=== PATIENT | male | born 1960 | race Caucasian/White ===

== ENCOUNTER 2025-02-27 19:46 | Inpatient (IN) | payer OTHER, SELFPAY ==
[2025-02-27 15:52] VITALS: BP 175/94
[2025-02-27 15:53] VITALS: BMI 21.1
[2025-02-27 15:57] LABS: Glucose - Point of Care 97 mg/dl (70-99)
--- NOTE | 2025-02-27 16:05 | ED.GENMED ---
History of Present Illness
General
Chief Complaint: Fever
Time Seen by Provider: 02/27/25 16:05
History of Present Illness
History of Present Illness:
PAST MEDICAL HISTORY AND REVIEW OF OLD RECORDS
- Patient came brought in by ambulance from [facility] rehab. The patient did have a CTA that I reviewed of the head neck May 2021.
Note:
CHIEF COMPLAINT(S)
Fever and chills.
HISTORY OF PRESENT ILLNESS
The patient is a 64-year-old male who presents with fever and chills. He reports having a fever of 104 degrees Fahrenheit as measured rectally. He was previously at [facility] for similar symptoms but was unable to stay due to lack of
available placement. The patient is currently undergoing rehabilitation at [facility]. He has expressed feelings of extremely cold despite the high fever. Additionally, he has been experiencing difficulty with urination and requires a Gonzalez catheter
due to kidney issues; he states that one kidney is non-functional and the other has cancer. The patient has a history of a stroke affecting his left side, which occurred two years ago. He reports smoking in the past and acknowledges previous
physician advice against smoking and drinking.
EXTERNAL RECORDS REVIEWED
Prior hospitalizations mentioned at [facility] and [facility] for fever management.
CHRONIC MEDICAL CONDITIONS SIGNIFICANTLY AFFECTING CARE
The patient has a history of stroke affecting the left side, occurring two years ago. He also has severe renal impairment, with one kidney non-functional and the other affected by cancer.
SOCIAL HISTORY
The patient has a history of smoking cigarettes, which he confirmed bringing to a previous physician appointment.
PHYSICAL EXAM
General: Alert, displays some confusion regarding time. He is febrile.
Skin: Warm, dry.
Head: Normocephalic, atraumatic.
Neck: Supple, trachea midline.
Eye, Ears, Nose, Mouth and Throat: Oral mucosa moist.
Cardiovascular: Normal peripheral perfusion, No edema. Tachycardic.
Respiratory: Respirations are non-labored. Breath sounds are clear and he is in no respiratory distress.
Gastrointestinal: Abdomen nondistended. Gonzalez catheter noted draining cloudy yellow urine.
Back: Normal range of motion, Normal alignment.
Musculoskeletal: Markedly decreased active range of motion left upper left lower due to pain
Neurological: There is markedly decreased strength in the left upper and left lower extremities as well as facial asymmetry that he states is related to stroke from several years ago.
Psychiatric: The patient appears confused at times and seems to lack medical knowledge including his own history
PROBLEM LIST
Acute: Fever and chills.
Chronic: Stroke, Kidney cancer, Non-functional kidney.
PLAN
Evaluate the patient with diagnostic tests, considering his reported kidney issues and history of stroke. Address fever management possibly with antipyretics like acetaminophen and ensure renal function is monitored. Investigate further the cause of
the fever, given the patients complex medical history.
DIFFERENTIAL DIAGNOSIS
The Differential Diagnosis includes, in no particular order and is not limited to:
1. Urinary tract infection
2. Pyelonephritis
3. Sepsis
4. Pneumonia
5. Malignancy-related fever
6. Viral infection
7. Bacterial infection
8. Medication-induced fever
9. Thromboembolism
10. Inflammatory process
SUMMARY OF ENCOUNTER
The patient was seen in the emergency department with suspected urinary tract infection. Given the patients complex medical history, including previous kidney issues and fever, we decided to administer strong intravenous antibiotics to address the
probable infection.
DISPOSITION
Admit
ASSESSMENT
The patient likely has a urinary tract infection, given the symptoms and preliminary assessments.
EMERGENCY TREATMENTS ADMINISTERED
The patient was administered intravenous antibiotics to combat the suspected urinary tract infection.
FOLLOW-UP INSTRUCTIONS
The patient will need to follow up after discharge from the hospital with a primary care provider or specialist to ensure the resolution of the infection and to manage ongoing kidney issues.
MEDICAL DECISION MAKING
-Complexity of Data Reviewed: Chronic conditions affecting care [history of stroke, renal cancer, non-functional kidney]
-Data:
Category 2
Non-emergency department records reviewed, including the patients recent admission history at [facility].
-Risk:
The decision for hospitalization was made due to the high risk associated with untreated urinary tract infections in a patient with significant renal comorbidities.
DIAGNOSIS
Urinary Tract Infection (UTI) - ICD-10: N39.0
RADIOLOGY
- Chest x-ray shows no acute abnormality.
EKG
- Sinus 103, leftward axis deviation, incomplete right bundle branch block
LABS
- White count 17.5, hemoglobin 11.4, initial blood sugar 97
UPDATE
- The patient was given Tylenol and fluids upon arrival. He has a significant elevated white blood cell count and arrived tachycardic and febrile.
- Evidence of UTI, ordered Rocephin
Phy Exam
Physical Exam
Physical Exam:
See HPI
Sepsis
Sepsis Screening
Sepsis Assessment: Sepsis
Sepsis Screen
Sepsis Screen: Sepsis
Date: 02/27/25
Time: 20:25
Course
Orders/Labs/Results
Orders:
Orders
02/27/25 15:55
Electrocardiogram (*1) Urgent
Reason for Study: Other
Other Reason for Exam: Possible Sepsis
EKG- Treatment ONCE
02/27/25 16:13
0.9% Sodium Chloride 1000 ml [Nss] 2,100 ml IV NOW STA
CR Chest Portable - 1 View Urgent
Comment:
Reason For Exam: fevers
Reason Study Needs to be Portable: Patient Unstable
02/27/25 16:15
Lactic Acid Q4H
Comment: CANCEL 2nd LACTIC ACID IF 1st LACTIC ACID IS LESS THAN 2
02/27/25 16:25
Complete Blood Count/With Diff Urgent
Lactic Acid Q4H
Comment: ON ICE, CANCEL 2ND ORDER IF FIRST LACTIC ACID LEVEL <2
02/27/25 16:26
Prothrombin Time Urgent
Blood Culture Q20M
NASIM Source: Blood/Venous
Specimen Description:
Comment: Urgent from separate sites. If patient screens positive for possible sepsis
Blood Culture Q20M
NASIM Source: Blood/Venous
Specimen Description:
Comment: Urgent from separate sites. If patient screens positive for possible sepsis
Blood Culture Q30M
NASIM Source: Blood/Venous
Specimen Description:
Blood Culture Q30M
NASIM Source: Blood/Venous
Specimen Description:
Influenza A+B Rapid Molecular Urgent
NASIM Source: Nasal Swab
Specimen Description:
02/27/25 16:27
Urinalysis Reflex To Culture Urgent
Date Specimen was Collected: 02/27/25
Time Specimen was Collected: 15:55
Urine Microscopic Reflex Cult Urgent
Urine Culture Urgent
NASIM Source: U
Specimen Description:
Date Specimen was Collected: 02/27/25
Time Specimen was Collected: 15:55
02/27/25 16:50
Acetaminophen [Tylenol] 1,000 mg PO NOW STA
02/27/25 17:37
CefTRIAXone [Rocephin] 1,000 mg IV NOW STA
02/27/25 18:06
Sterile Water [Sterile Water For Injection] 10 ml .ROUTE .[facility]
02/27/25 18:31
Comprehensive Metabolic Panel Urgent
02/27/25 18:47
Gonzalez Catheter [Catheter- Indwelling] As Directed
Reason for insertion: Chronic Gonzalez on Admit
Size: 18
Type: Indwelling
02/27/25 19:19
Admit/Transfer Patient As Directed
Co-Sign Provider:
Level of Care: Inpatient admission
Assign to:: Telemetry
Physician / Group: raheem pino
Diagnosis: sepsis/uti catheter associated
Reason for Telemetry: Arrhythmia
Date to Stop Telemetry: 03/02/25
Time to Stop Telemetry: 11:00
Reason for Hospitalization: sepsis/uti catheter associated
Expected length of stay greater than two midnights?: Yes
ELOS- Estimated Length of Stay in days: 4
I certify the patient meets the requirements for IP care: Yes
Code Status As Directed
Resuscitation Status: Full Code
02/27/25 19:23
PRN Pain Medication Management As Directed
May give lesser potent ordered pain med per pt: Yes
preference::
Protocol:: Medication orders for pain may be administered in a
manner that supports deferring to patient preference
when the pt is:
- Requesting an ordered lesser potent pain medication.
Least to most potent pain medications are defined
as: acetaminophen < NSAID < tramadol < opioids
(morphine, oxycodone, hydromorphone).
- Requesting a lesser dose of the same medication IF
ORDERED.
- Requesting a less intrusive route of administration
if both routes are prescribed by the provider (PO <
IV).
02/27/25 19:31
PRN Pain Medication Management As Directed
May give lesser potent ordered pain med per pt: Yes
preference::
Protocol:: Medication orders for pain may be administered in a
manner that supports deferring to patient preference
when the pt is:
- Requesting an ordered lesser potent pain medication.
Least to most potent pain medications are defined
as: acetaminophen < NSAID < tramadol < opioids
(morphine, oxycodone, hydromorphone).
- Requesting a lesser dose of the same medication IF
ORDERED.
- Requesting a less intrusive route of administration
if both routes are prescribed by the provider (PO <
IV).
02/27/25 19:35
PRN Pain Medication Management As Directed
May give lesser potent ordered pain med per pt: Yes
preference::
Protocol:: Medication orders for pain may be administered in a
manner that supports deferring to patient preference
when the pt is:
- Requesting an ordered lesser potent pain medication.
Least to most potent pain medications are defined
as: acetaminophen < NSAID < tramadol < opioids
(morphine, oxycodone, hydromorphone).
- Requesting a lesser dose of the same medication IF
ORDERED.
- Requesting a less intrusive route of administration
if both routes are prescribed by the provider (PO <
IV).
02/27/25 20:00
Lactic Acid Q4H
Comment: ON ICE, CANCEL 2ND ORDER IF FIRST LACTIC ACID LEVEL <2
02/27/25 20:15
Lactic Acid Q4H
Comment: CANCEL 2nd LACTIC ACID IF 1st LACTIC ACID IS LESS THAN 2
03/02/25 11:00
DC Protocol for Telemetry ONCE
DC Protocol for Telemetry ONCE
Abnormal Lab Results
02/27/25 02/27/25 02/27/25
16:25 16:26 16:27
WBC 17.5 H 10^3/uL
(4.8-10.8)
RBC 3.86 L 10^6/uL
(4.70-6.10)
Hgb 11.4 L g/dL
(13.0-18.0)
Hct 34.2 L %
(39.0-52.0)
Plt Count 526 H 10^3/uL
(130-400)
Abs Immat Gran (auto) 0.1 H 10^3/uL
(0-0.05)
Absolute Neuts (auto) 13.2 H 10^3/uL
(1.4-6.5)
Absolute Monos (auto) 1.3 H 10^3/uL
(0.1-0.6)
Lymphocytes % 16.5 L %
(20.5-51.1)
PT 16.9 H Sec
(11.4-14.6)
Sodium
Carbon Dioxide
Glucose
Calcium
AST
Total Protein
Albumin
Ur Occult Blood Reflex 4+ A
(Negative)
Leukocyte Esterase Rfl 3+ A
(Negative)
Urine RBC 3-6 A /HPF
(0-2)
Urine WBC (Reflex) 40-50 A /HPF
(0-5)
Urine Bacteria (Reflex) Few A
(Negative)
Urine Albumin (Reflex) 2+ A
(Neg - Trace)
02/27/25
18:31
WBC
RBC
Hgb
Hct
Plt Count
Abs Immat Gran (auto)
Absolute Neuts (auto)
Absolute Monos (auto)
Lymphocytes %
PT
Sodium 132 L mmol/L
(135-145)
Carbon Dioxide 21 L mmol/L
(22-30)
Glucose 132 H mg/dl
(70-99)
Calcium 7.8 L mg/dl
(8.4-10.2)
AST 14 L U/L
(17-59)
Total Protein 5.9 L g/dl
(6.3-8.2)
Albumin 3.2 L g/dl
(3.5-5.0)
Ur Occult Blood Reflex
Leukocyte Esterase Rfl
Urine RBC
Urine WBC (Reflex)
Urine Bacteria (Reflex)
Urine Albumin (Reflex)
02/27/25 16:25
02/27/25 18:31
Vital Signs
Temp: 40.0 C
Initial and Last Documented VS:
Initial Vital Signs
Temp Pulse Resp BP Pulse Ox
40.1 C H 104 18 175/94 97
02/27/25 15:52 02/27/25 15:52 02/27/25 15:52 02/27/25 15:52 02/27/25 15:52
Last Documented Vital Signs
Temp Pulse Resp BP Pulse Ox
40.0 C H 118 23 131/74 97
02/27/25 16:45 02/27/25 18:45 02/27/25 18:45 02/27/25 18:00 02/27/25 16:15
*Pulse Oximetry
SaO2: 97
Oxygen Mode of Delivery: Room air
Patient hypoxic: no
*Critical Care Note
Total Time (30-74mins, 75-104mins- exclusive of procedures): Not Applicable
ED Attending Note
-
Portions of this chart may have been created with voice recognition software.� Occasional wrong word or��sound alike� substitutions may have occurred due to the inherent limitations of voice recognition software.
Discharge Plan
Departure
Patient Disposition: Admit
Date of Disposition: 02/27/25
Time of Disposition: 17:44
Presentation/result/management discussed w/ accepting MD/DO: Hospitalist
Patient with high blood pressure during this ER visit?: Yes
Discharge Problem:
Sepsis secondary to UTI
Interventions
Interventions:
*Risk Screen - Suicide Last Done: 02/27/25 16:07
*General Assessment Last Done: 02/27/25 15:59
*Neglect/Abuse Screening Last Done: 02/27/25 16:07
*ED- Fall Risk Assessment Last Done: 02/27/25 15:59
*ED COVID-19 Vaccine History Last Done: 02/27/25 15:59
ED- Neurological Assessment Last Done: 02/27/25 17:21
ED-Skin Assessment Last Done: 02/27/25 17:21
[2025-02-27 16:40] LABS: Hematocrit 34.2 % (39.0-52.0); Hemoglobin 11.4 g/dL (13.0-18.0); Mean Corp Hgb Conc. 33.3 g/dL (33.0-37.0); Mean Corpuscular Volume 88.6 fL (80.0-94.0); Nucleated Red Blood Cells % 0 % (-); Platelet Count 526 10^3/uL (130-400); Red Cell Dist. Width 13.8 % (11.5-14.5)
[2025-02-27 16:49] LABS: INR 1.34; PT 16.9 Sec (11.4-14.6)
[2025-02-27 17:00] VITALS: BP 155/109
[2025-02-27] MEDS: NSS 2100 ML IV (17:04)
[2025-02-27] MEDS: TYLENOL 1000 MG PO (17:04)
[2025-02-27 17:18] LABS: Urine Character Clear (Clear)
[2025-02-27 17:25] LABS: Urine Squamous Cell 0-2 /LPF (Few); Urine White Cell 40-50 /HPF (0-5)
[2025-02-27 18:00] VITALS: BP 131/74
[2025-02-27] MEDS: ROCEPHIN 1000 MG IV (18:09)
--- NOTE | 2025-02-27 18:44 | HPS.HSE ---
Family Physician
-
Family Physician: Marcello Macias, DO
Chief Complaint
-
Fever, chills
History of Present Illness
64-year-old male from [facility] rehab sent in for 104F rectal temperature, fever, chills requires Gonzalez catheter due to neurogenic bladder post stroke 2 years ago. He has had approximately 3-4 catheter associated infections he stated. He reports
he was diagnosed with left renal cancer approximate 9 months ago at [facility] however has not sought any treatment yet. He was homeless and in between places was at a rehab in [place] then got moved to [facility] and is on a waiting
list for low income assisted housing he reports. He had history of multiple strokes he states with large stroke 2 years ago resulting in left hemiparesis, slurred speech, memory impairment(talks in a tangent) prior. He denies headache, sore
throat, chest pain, palpitations, cough, shortness breath, abdominal pain, nausea, vomiting, diarrhea.
He has past medical history active smoker CVA with left-sided hemiparesis 2022/memory impairment/left foot neuropathy, chronic Gonzalez catheter/neurogenic bladder x 2 years, frequent UTIs, right single nonfunctioning kidney, left renal cancer,, HTN,
HLD, DM2, GERD, upper GI bleed, former alcoholic stop 2022, renal calculi.
Medical History
Past Medical History
Past Medical History: Reports Other
Additional Past Medical History:
CVA with left-sided hemiparesis 2022/memory impairment/left foot neuropathy
chronic Gonzalez catheter/neurogenic bladder x 2 years
frequent UTIs
right single nonfunctioning kidney
left renal cancer
HTN
HLD
DM2
GERD
upper GI bleed
former alcoholic stop 2022
renal calculi.
Past Surgical History: Reports Other
Additional Past Surgical History:
Cholecystectomy
Tonsillectomy
Social History
Tobacco: Smoker (Half a pack per day)
Alcohol: Former (40 years 1 case beer a day stopped 2022)
Personal: Single
Living: Penitentiary ([facility])
Employment: Disabled
Family History
Family History: Other (Father CVA age 93 mother currently living history of breast cancer, skin cancer)
Allergies / Home Medications
Allergies reflects when Allergies were last updated in [employer].
Home Medications with original date entered in [employer]
Allergy/Medication List:
Allergies
Allergy/AdvReac Type Severity Reaction Status Date / Time
No Known Allergies Allergy Unverified 02/27/25 16:47
Home Medications
acetaminophen 325 mg tablet (Tylenol) 650 mg PO Q6HPRN PRN mild pain 02/27/25
acetaminophen 325 mg tablet (Tylenol) 650 mg PO Q6HPRN PRN mild pain 02/27/25
aspirin 81 mg chewable tablet 81 mg PO DAILY 02/27/25
atorvastatin 40 mg tablet (Lipitor) 40 mg PO QPM 02/27/25
baclofen 10 mg tablet 10 mg PO BID 02/27/25
bisacodyl 10 mg rectal suppository (Dulcolax (bisacodyl)) 10 mg VA DAILYPRN PRN if no bm aftr mom 02/27/25
calcium carbonate 500 mg PO DAILY 02/27/25
cetylpyridinium chloride 1 melody mucous membrane Q2HPRN PRN cough 02/27/25
gabapentin 300 mg capsule 300 mg PO BID 02/27/25
insulin glargine 100 unit/mL subcutaneous solution 8 unit SC HS 02/27/25
insulin lispro 200 unit/mL (3 mL) subcutaneous pen (Humalog KwikPen U-200 Insulin) 5 sliding scale dose SC AC 02/27/25
levetiracetam 500 mg tablet (Keppra) 500 mg PO BID 02/27/25
loperamide 2 mg capsule 2 mg PO [id number] PRN diarrhea 02/27/25
loratadine 10 mg tablet (Claritin) 10 mg PO DAILYPRN PRN allergies 02/27/25
magnesium hydroxide 400 mg/5 mL oral suspension (Milk of Magnesia) 2,400 mg PO DAILYPRN PRN if no bm by 3rd day 02/27/25
meloxicam 15 mg tablet 15 mg PO HS 02/27/25
metformin 500 mg tablet 500 mg PO BID 02/27/25
pantoprazole 40 mg tablet,delayed release (Protonix) 40 mg PO DAILY 02/27/25
sodium phosphates 19 gram-7 gram/118 mL enema (Fleet Enema) 118 ml VA DAILYPRN PRN if no bm aftr dulolcax 02/27/25
tamsulosin 0.4 mg capsule (Flomax) 0.4 mg PO HS 02/27/25
Review of Systems
-
History Source: Patient
A 12 point ROS was completed and negative except as noted: Yes
Constitutional: Reports Fever and Chills
EENT: Denies Sore Throat or Runny Nose
Respiratory: Denies Cough or Trouble Breathing
Cardiac: Denies Chest Pain, Diaphoresis, Palpitations or Syncope
Abdomen/GI: Denies Abdominal Pain, Nausea, Vomiting, Diarrhea, Constipated or Bloody Stools
: Reports Gonzalez (Draining yellow in color)
Musculoskeletal: Denies Joint Pain or Edema
Skin: Denies Itching or Rash
Neurological: Reports Weakness (Chronic left hemiparesis with left drop wrist can slightly dorsiflex left foot); Denies Dizzy or Headache
Endocrine: Reports No Symptoms
Hematologic/Lymphatic: Reports No Symptoms
Psych: Reports Calm
Physical Exam
Vital Signs
Vital Signs
Temp Pulse Resp BP Pulse Ox
104.0 F H 117 26 131/74 97
02/27/25 16:45 02/27/25 18:15 02/27/25 18:15 02/27/25 18:00 02/27/25 16:15
Physical Exam
General: Fever and Chills
HEENT: NormoCephalic, Anicteric, Moist mucous membranes, PERRLA, [place] Conjunctivae and No Ptosis
Respiratory: Clear; No Wheezes, Rales or Rhonchi
Cardiac: S1/S2 and Regular Rhythm; No Murmur, Rub, Gallop or Peripheral Edema
Breast: Deferred by me
GI: Soft, Non Tender, Non Distended, Normal Bowel Sounds and No Hepatosplenomegaly
Genito-urinary: Gonzalez (Draining yellow in color)
Musculoskeletal: No Clubbing, No Cyanosis, No Edema and Other (Chronic left hemiparesis with left drop wrist can slightly dorsiflex left foot)
Neuro: Awake, Alert, Oriented (To name, place, year but poor historian as has memory loss due to history of stroke in 2022 he believes), No Sensory Deficits and Other (Chronic left-sided hemiparesis with left wrist drop, slight plantarflexion of
left foot, chronic slight slurring of speech since stroke); No Facial Droop, Tremors or Sedated
Psych: Calm
Laboratory Results
-
02/27/25 16:25
Laboratory Results
PT 16.9 Sec (11.4-14.6) H 02/27/25 16:26
INR 1.34 02/27/25 16:26
Lactic Acid 1.9 mmol/L (0.7-2.0) 02/27/25 16:25
Total Bilirubin Cancelled 02/27/25 16:26
AST Cancelled 02/27/25 16:26
ALT Cancelled 02/27/25 16:26
Alkaline Phosphatase Cancelled 02/27/25 16:26
Data Reviewed
-
Lab Data: Labs Reviewed by me
Impression/Plan
-
Impression/plan:
Admit to tele
#Sepsis 2/2 catheter associated UTI
History of recurrent UTIs-states typically goes to [facility] or [facility]
#Single nonfunctioning kidney right
104F temp, WBC 17.5 with left shift, HR 117, 131/74
Corrected calcium 8.4
- Gonzalez catheter replaced in ER
- Follow urine culture, blood cultures x 2
- IV Rocephin
-Continue Flomax 0.4 mg at bedtime
- Tylenol 1000 mg now
- IV NSS 2000 cc bolus given in ER
-IV NSS 100 cc an hour
- Follow CBC, CMP, lactic acid
# Left renal carcinoma other kidney-patient reports 9 months ago was diagnosed at [facility] but has not sought treatment
- Advised patient to seek evaluation
#CVA with chronic left-sided hemiparesis, chronic memory impairment 2022
#History of seizure with stroke in 2022
- Continue Keppra 500 mg twice daily, aspirin 81 mg daily, Lipitor 40 mg every afternoon
- Uses wheelchair
#Nicotine abuse
Smokes half a pack a day cessation advised
-Refused nicotine patch or gum
#HTN
- BP 131/74
- Current medication
#HLD
- Continue Lipitor 40 mg every afternoon
#DM2
- Accu-Cheks with SSI, check HgbA1c
- Continue insulin glargine 8 units SQ at bedtime, Humalog 5 units with meals
Hold metformin 500 mg twice daily
# GERD
upper GI bleed
History of esophageal perforation 2 years ago patient reports
- Continue Protonix 40 mg daily, calcium carbonate 500 mg daily
#Chronic left foot neuropathy
-Continue meloxicam 15 mg at bedtime
-Continue gabapentin 300 mg p.o. twice daily
Other PMH:
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
Renal calculi
DVT prophylaxis
Subcu Lovenox
Full code
[2025-02-27 19:10] LABS: ALT (SGPT) 11 U/L (0-50); AST (SGOT) 14 U/L (17-59); Albumin 3.2 g/dl (3.5-5.0); Alkaline Phosphatase 76 U/L (38-126); Blood Urea Nitrogen 12 mg/dl (9-20); Calcium 7.8 mg/dl (8.4-10.2); Carbon Dioxide 21 mmol/L (22-30); Chloride 105 mmol/L (98-107); Estimated Creatinine Clearance 75 ml/min; Glucose 132 mg/dl (70-99); Potassium 4.2 mmol/L (3.5-5.1); Sodium 132 mmol/L (135-145); Total Protein 5.9 g/dl (6.3-8.2); eGFR > 60.00
--- NOTE | 2025-02-27 19:29 | W.PN.UPDATE ---
Update Note
Progress Note Update
Patient seen in conjunction with REAL ESTATE PHOTOGRAPHER. I agree with her findings on history and physical. I concur with assessment and plan listed otherwise.
Briefly, this is a 64-year-old male who presents from [facility] facility with fevers and chills. History is not entirely complete but appears to have a history of prior CVA with hemorrhagic conversion and residual neurogenic bladder with
urinary retention issues status post chronic indwelling urinary catheter, on seizure prophylaxis, GERD, [id number]-[id number] diabetes, BPH, minimal dementia who states he has been having chills. Denies any abnormalities with his urinary catheter.
Denies flank pain. Denies any nausea or vomiting. Denies abdominal discomfort. History of prior UTIs. He also reports history of nonfunctional right kidney of unknown etiology and possibly left sided kidney mass/cancer that he states required
scraping.
In the ED he had a temp of 104, blood pressure was 130/74 with a pulse rate of 117. He had a white count of 7.5, hemoglobin 11.4 platelet 526. His electrolytes show a sodium of 132 otherwise normal. BUN and creatinine were 13 and 0.9
respectively. UA markedly positive with WBCs leukocyte esterase but only few bacteria. Influenza A is negative. Chest x-ray shows no acute infiltrates.
Assessment plan
Urosepsis/complicated UTI in patient with chronic indwelling catheter and history of's
Recent hospitalization
- Admit to telemetry for sepsis
- Blood and urine cultures sent
- Normal lactic acid
- Start IV ceftriaxone
- Status post 2 L normal saline, hemodynamically stable
- Monitor ins and outs
- No flank pain, normal kidney function, hold off imaging at this time
- Continues tamsulosin
Rest of plan as in the REAL ESTATE PHOTOGRAPHER note
DVT prophylaxis�Lovenox
CODE STATUS�full code
[2025-02-27 20:00] VITALS: BP 101/62
[2025-02-27 21:35] VITALS: BP 100/58; BMI 20.6
[2025-02-27 21:56] LABS: Glucose - Point of Care 167 mg/dl (70-99)
[2025-02-27] MEDS: NSS 1000 IV (22:33)
[2025-02-27] MEDS: FLOMAX 0.4 MG PO (22:33)
[2025-02-27] MEDS: KEPPRA 500 MG PO (22:33)
[2025-02-27] MEDS: NEURONTIN 300 MG PO (22:33)
[2025-02-27] MEDS: LIORESAL 10 MG PO (22:34)
[2025-02-27] MEDS: MOBIC 15 MG PO (22:34)
[2025-02-27] MEDS: TYLENOL 650 MG PO (23:33)
[2025-02-27 23:43] VITALS: BP 139/63
[2025-02-27] MEDS: LANTUS 0.04 UNITS SC (23:51)
[2025-02-28] VITALS (7 sets, daily range): BP systolic 95–150; BP diastolic 55–79; PULSE 78; O2SAT 94
[2025-02-28 07:23] LABS: Glucose - Point of Care 120 mg/dl (70-99)
[2025-02-28] MEDS: TYLENOL 650 MG PO ×2 (07:46→16:03)
[2025-02-28] MEDS: KEPPRA 500 MG PO ×2 (07:47→19:10)
[2025-02-28] MEDS: OSCAL CAL 500 500 MG PO (07:47)
[2025-02-28] MEDS: LOW STRENGTH ASPIRIN 81 MG PO (07:47)
[2025-02-28] MEDS: LIORESAL 10 MG PO ×2 (07:48→19:10)
[2025-02-28] MEDS: PROTONIX 40 MG PO (07:48)
[2025-02-28] MEDS: NEURONTIN 300 MG PO ×2 (07:48→19:10)
[2025-02-28 07:52] LABS: Hematocrit 32.4 % (39.0-52.0); Hemoglobin 10.6 g/dL (13.0-18.0); Mean Corp Hgb Conc. 32.7 g/dL (33.0-37.0); Mean Corpuscular Volume 89.8 fL (80.0-94.0); Nucleated Red Blood Cells % 0 % (-); Platelet Count 462 10^3/uL (130-400); Red Cell Dist. Width 13.7 % (11.5-14.5)
[2025-02-28] MEDS: NSS 1000 IV (07:57)
[2025-02-28] MEDS: NOVOLOG FLEXPEN-LOW RESISTANCE SC ×2 (08:02→17:22)
[2025-02-28] MEDS: NOVOLOG FLEXPEN 5 UNITS SC ×2 (08:57→11:48)
[2025-02-28 09:08] LABS: Glycohemoglobin (HgbA1c) 7.1 % (4.0-5.6)
[2025-02-28 10:05] LABS: ALT (SGPT) < 10 U/L (0-50); AST (SGOT) 15 U/L (17-59); Albumin 3.2 g/dl (3.5-5.0); Alkaline Phosphatase 72 U/L (38-126); Blood Urea Nitrogen 9 mg/dl (9-20); Calcium 8.1 mg/dl (8.4-10.2); Carbon Dioxide 21 mmol/L (22-30); Chloride 109 mmol/L (98-107); Estimated Creatinine Clearance 82 ml/min; Glucose 100 mg/dl (70-99); Potassium 4.3 mmol/L (3.5-5.1); Sodium 136 mmol/L (135-145); Total Protein 6.1 g/dl (6.3-8.2); eGFR > 60.00
--- NOTE | 2025-02-28 10:15 | W.PN.HOSP.TC ---
Today's Communication/Plan
-
IV Ceftriaxone
awaiting cultures
Assessment / Plan
Assessment / Plan
Mr. López Manuel is a 64 yo man, [facility] resident with hx CVA with left-sided hemiparesis (2022), memory impairment, neurogenic bladder with chronic benedict, frequent UTI's, HTN, HLD, DM 2, GERD, former alcohol use, tobacco use presents to the ER
with 104 T.
He is admitted for sepsis 2/2 UTI.
Sepsis 2/2 catheter associated UTI
History of recurrent UTI's - states typically goes to [facility] or [place]
- Benedict catheter replaced in ER
- Follow urine culture, blood cultures x 2
- IV Rocephin
-Continue Flomax 0.4 mg at bedtime
- IV NSS 2000 cc bolus given in ER
-IV NSS 100 cc an hour
- follow up cultures
# Left renal carcinoma -patient reports 9 months ago was diagnosed at [facility] but has not sought treatment
- Advised patient to seek evaluation
#CVA with chronic left-sided hemiparesis, chronic memory impairment 2022
#History of seizure with stroke in 2022
- Continue Keppra 500 mg twice daily, aspirin 81 mg daily, Lipitor 40 mg every afternoon
- Uses wheelchair
#Nicotine abuse
Smokes half a pack a day cessation advised
-Refused nicotine patch or gum
#HTN
- BP 131/74
- Current medication
#HLD
- Continue Lipitor 40 mg every afternoon
#DM2
- Accu-Cheks with SSI, check HgbA1c
- Continue insulin glargine 8 units SQ at bedtime, Humalog 5 units with meals
Hold metformin 500 mg twice daily
-ok to increase to 2200 chasity
# GERD
upper GI bleed
History of esophageal perforation 2 years ago patient reports
- Continue Protonix 40 mg daily, calcium carbonate 500 mg daily
#Chronic left foot neuropathy
-Continue meloxicam 15 mg at bedtime
-Continue gabapentin 300 mg p.o. twice daily
Other PMH:
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
Renal calculi
DVT prophylaxis
Subcu Lovenox
Full code
Anticipated Discharge: 24 - 48 hours
Subjective/Interval History
-
Date of Service: February 28, 2025
feeling better than yesterday
states antibiotics are working
Objective Data
-
Labs:
Laboratory Results
02/28/25 02/28/25
06:18 08:49
WBC 16.0 H
Hgb 10.6 L
Hct 32.4 L
Plt Count 462 H
Sodium Cancelled 136
Potassium Cancelled 4.3
Chloride Cancelled 109 H
Carbon Dioxide Cancelled 21 L
BUN Cancelled 9
Creatinine Cancelled 0.8
Glucose Cancelled 100 H
Calcium Cancelled 8.1 L
Total Bilirubin Cancelled 0.4
AST Cancelled 15 L
ALT Cancelled < 10
Alkaline Phosphatase Cancelled 72
Vital Signs:
Vital Signs
Temp Pulse Resp BP Pulse Ox
98.8 F 78 18 150/79 94
02/28/25 07:20 02/28/25 07:20 02/28/25 07:20 02/28/25 07:20 02/28/25 07:20
I&O
02/27/25 02/28/25 03/01/25
06:59 06:59 06:59
Intake Total 400 / 400
Output Total 1875 / 1875
Balance -1475 / -1475
Review of Systems
-
History Source: Patient
All other systems: Reviewed and negative
Physical Exam
-
General: No Apparent Distress
HEENT: PERRLA
Respiratory: Clear to Auscultation; Negative Wheezes
Cardiac: Regular Rhythm and S1/S2
GI: Soft and Nontender
Musculoskeletal: No Edema
Skin: Warm and Dry; Negative Rash
Neuro: AO x 3
Psych: Calm
Data Reviewed
-
Diagnostic Radiology: Report Reviewed by me
Labs: Labs Reviewed by me
[2025-02-28 11:46] LABS: Glucose - Point of Care 213 mg/dl (70-99)
[2025-02-28] MEDS: NOVOLOG FLEXPEN-LOW RESISTANCE 2 UNITS SC (11:48)
--- NOTE | 2025-02-28 15:23 | CM ---
Alert awake oriented patient who lives at [facility] half-way . He is wheelchair bound. He is non ambulatory.Referral placed for [facility]. Pt's requested to transfer to [facility] after rehab completed was forwarded CM at [facility]
via referral.Advanced directive give to patient .Pt has electric wheelchair at [facility].Pt has chronic Gonzalez with left side paralysis post CVA.
Pharmacy Concept
PCP DR Macias
PLAN return to [facility]
[2025-02-28 17:00] LABS: Glucose - Point of Care 76 mg/dl (70-99)
[2025-02-28] MEDS: LIPITOR 40 MG PO (17:20)
[2025-02-28] MEDS: LOVENOX 40 MG SC (17:20)
[2025-02-28] MEDS: STERILE WATER FOR INJECTION 10 ML IV (17:21)
[2025-02-28] MEDS: ROCEPHIN 1000 MG IV (17:22)
[2025-02-28 18:51] LABS: Glucose - Point of Care 171 mg/dl (70-99)
[2025-02-28] MEDS: NOVOLOG FLEXPEN SC (19:06)
[2025-02-28] MEDS: MOBIC 15 MG PO (19:11)
[2025-02-28] MEDS: FLOMAX 0.4 MG PO (19:11)
[2025-02-28 21:09] LABS: Glucose - Point of Care 154 mg/dl (70-99)
[2025-02-28] MEDS: LANTUS 0.08 UNITS SC (21:35)
[2025-03-01 03:47] VITALS: BP 138/67
[2025-03-01] MEDS: TYLENOL 650 MG PO ×3 (04:23→17:01)
--- NOTE | 2025-03-01 06:11 | PTCARENOTE ---
patient refusing daily weight at this time, states he doesn't want to get up and to ask again him at a later time.
[2025-03-01 07:10] LABS: Hematocrit 31.2 % (39.0-52.0); Hemoglobin 10.6 g/dL (13.0-18.0); Mean Corp Hgb Conc. 34.0 g/dL (33.0-37.0); Mean Corpuscular Volume 89.4 fL (80.0-94.0); Nucleated Red Blood Cells % 0 % (-); Platelet Count 454 10^3/uL (130-400); Red Cell Dist. Width 13.5 % (11.5-14.5)
[2025-03-01 07:20] VITALS: BP 139/72
[2025-03-01 07:24] LABS: Glucose - Point of Care 111 mg/dl (70-99)
[2025-03-01] MEDS: NOVOLOG FLEXPEN-LOW RESISTANCE SC ×2 (07:37→16:35)
[2025-03-01 08:15] LABS: Blood Urea Nitrogen 10 mg/dl (9-20); Calcium 8.3 mg/dl (8.4-10.2); Carbon Dioxide 25 mmol/L (22-30); Chloride 105 mmol/L (98-107); Estimated Creatinine Clearance 66 ml/min; Glucose 108 mg/dl (70-99); Potassium 4.1 mmol/L (3.5-5.1); Sodium 138 mmol/L (135-145); eGFR > 60.00
[2025-03-01] MEDS: KEPPRA 500 MG PO ×2 (09:25→19:38)
[2025-03-01] MEDS: PROTONIX 40 MG PO (09:25)
[2025-03-01] MEDS: LOW STRENGTH ASPIRIN 81 MG PO (09:25)
[2025-03-01] MEDS: LIORESAL 10 MG PO ×2 (09:25→19:38)
[2025-03-01] MEDS: NEURONTIN 300 MG PO ×2 (09:25→19:38)
[2025-03-01] MEDS: OSCAL CAL 500 500 MG PO (09:26)
[2025-03-01] MEDS: NOVOLOG FLEXPEN 5 UNITS SC ×3 (09:26→16:45)
--- NOTE | 2025-03-01 10:16 | CM ---
Referral placed for [facility] return . Pt accepted back at co.
SW at [facility] aware of pt's requested to transfer to [facility] after rehab.
Pt has electric wheelchair at [facility].Pt has chronic Gonzalez with left side paralysis post CVA.
Pt on IV antibiotics Pending cultures.
Will need medical nec form for ambulance.
[facility]
[phone]
fax [phone]
PLAN return to [facility]
--- NOTE | 2025-03-01 10:54 | W.PN.HOSP.TC ---
Today's Communication/Plan
-
IV Ceftriaxone
possible DC tomorrow
Assessment / Plan
Assessment / Plan
Mr. López Manuel is a 64 yo man, [facility] resident with hx CVA with left-sided hemiparesis (2022), memory impairment, neurogenic bladder with chronic benedict, frequent UTI's, HTN, HLD, DM 2, GERD, former alcohol use, tobacco use presents to the ER
with 104 T.
He is admitted for sepsis 2/2 UTI.
Sepsis 2/2 catheter associated UTI
History of recurrent UTI's - states typically goes to [facility] or [place]
- Benedict catheter replaced in ER
- urine culture with mixed growth. Given clinical improvement on IV Ceftriaxone, will continue
-Continue Flomax 0.4 mg at bedtime
- s/p fluids
- likely DC tomorrow, continue to monitor leukocytosis which is resolving
# Left renal carcinoma -patient reports 9 months ago was diagnosed at [facility] but has not sought treatment
- Advised patient to seek evaluation
#CVA with chronic left-sided hemiparesis, chronic memory impairment 2022
#History of seizure with stroke in 2022
- Continue Keppra 500 mg twice daily, aspirin 81 mg daily, Lipitor 40 mg every afternoon
- Uses wheelchair
#Nicotine abuse
Smokes half a pack a day cessation advised
-Refused nicotine patch or gum
#HTN
- BP 131/74
- Current medication
#HLD
- Continue Lipitor 40 mg every afternoon
#DM2
- Accu-Cheks with SSI, check HgbA1c
- Continue insulin glargine 8 units SQ at bedtime, Humalog 5 units with meals
Hold metformin 500 mg twice daily
-ok to increase to 2200 chasity
# GERD
upper GI bleed
History of esophageal perforation 2 years ago patient reports
- Continue Protonix 40 mg daily, calcium carbonate 500 mg daily
#Chronic left foot neuropathy
-Continue meloxicam 15 mg at bedtime
-Continue gabapentin 300 mg p.o. twice daily
Other PMH:
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
Renal calculi
DVT prophylaxis
Subcu Lovenox
Full code
Anticipated Discharge: 24 - 48 hours
Subjective/Interval History
-
Date of Service: March 01, 2025
overall feeling better
no fevers overnight
Objective Data
-
Labs:
Laboratory Results
03/01/25
06:11
WBC 12.7 H
Hgb 10.6 L
Hct 31.2 L
Plt Count 454 H
Sodium 138
Potassium 4.1
Chloride 105
Carbon Dioxide 25
BUN 10
Creatinine 1.0
Glucose 108 H
Calcium 8.3 L
Vital Signs:
Vital Signs
Temp Pulse Resp BP Pulse Ox
99.3 F 70 18 139/72 97
03/01/25 07:20 03/01/25 07:20 03/01/25 07:20 03/01/25 07:20 03/01/25 08:00
I&O
02/28/25 03/01/25 03/02/25
06:59 06:59 06:59
Intake Total 400 / 400 1840 / 1840
Output Total 1875 / 1875 2750 / 2750
Balance -1475 / -1475 -910 / -910
Review of Systems
-
History Source: Patient
All other systems: Reviewed and negative
Physical Exam
-
General: No Apparent Distress
HEENT: PERRLA
Respiratory: Clear to Auscultation; Negative Wheezes
Cardiac: Regular Rhythm and S1/S2
GI: Soft and Nontender
Genito-urinary: Benedict
Musculoskeletal: No Edema
Skin: Warm and Dry; Negative Rash
Neuro: AO x 3 and Other (left facial droop; left hemiparesis )
Psych: Calm
Data Reviewed
-
Diagnostic Radiology: Report Reviewed by me
Labs: Labs Reviewed by me
[2025-03-01 11:06] VITALS: BP 113/65
[2025-03-01 12:11] LABS: Glucose - Point of Care 153 mg/dl (70-99)
[2025-03-01] MEDS: NOVOLOG FLEXPEN-LOW RESISTANCE 1 UNITS SC (12:16)
[2025-03-01 12:45] LABS: Glucose - Point of Care 156 mg/dl (70-99)
[2025-03-01 15:33] VITALS: BP 120/67
[2025-03-01 16:30] LABS: Glucose - Point of Care 130 mg/dl (70-99)
[2025-03-01] MEDS: ROCEPHIN 1000 MG IV (17:02)
[2025-03-01] MEDS: LIPITOR 40 MG PO (17:02)
[2025-03-01] MEDS: LOVENOX 40 MG SC (17:02)
[2025-03-01] MEDS: STERILE WATER FOR INJECTION 10 ML IV (17:02)
--- NOTE | 2025-03-01 17:41 | PTCARENOTE ---
Addendum entered by Venessa Peterson 03/01/25 17:42:
correction: 230 cc total output from benedict.
Original Note:
pt with 330 cc output from benedict today. dr. brown notified, verbal order for 500cc NSS bolus. will continue to monitor.
[2025-03-01] MEDS: NSS 500 IV (18:06)
[2025-03-01 19:04] VITALS: BP 122/63
[2025-03-01] MEDS: MOBIC 15 MG PO (19:38)
[2025-03-01] MEDS: FLOMAX 0.4 MG PO (19:38)
[2025-03-01 21:29] LABS: Glucose - Point of Care 111 mg/dl (70-99)
[2025-03-01] MEDS: LANTUS 0.08 UNITS SC (21:45)
[2025-03-01 23:22] VITALS: BP 143/70
[2025-03-02 03:29] VITALS: BP 126/67
[2025-03-02 07:28] LABS: Hematocrit 33.8 % (39.0-52.0); Hemoglobin 11.0 g/dL (13.0-18.0); Mean Corp Hgb Conc. 32.5 g/dL (33.0-37.0); Mean Corpuscular Volume 89.4 fL (80.0-94.0); Nucleated Red Blood Cells % 0 % (-); Platelet Count 480 10^3/uL (130-400); Red Cell Dist. Width 13.7 % (11.5-14.5)
[2025-03-02 07:43] VITALS: BP 138/72
[2025-03-02 07:55] LABS: Glucose - Point of Care 104 mg/dl (70-99)
[2025-03-02] MEDS: NOVOLOG FLEXPEN-LOW RESISTANCE SC (08:14)
[2025-03-02] MEDS: PROTONIX 40 MG PO (08:14)
[2025-03-02] MEDS: KEPPRA 500 MG PO ×2 (08:14→20:42)
[2025-03-02] MEDS: LIORESAL 10 MG PO ×2 (08:15→20:42)
[2025-03-02] MEDS: LOW STRENGTH ASPIRIN 81 MG PO (08:15)
[2025-03-02] MEDS: TYLENOL 650 MG PO ×2 (08:15→17:28)
[2025-03-02] MEDS: OSCAL CAL 500 500 MG PO (08:15)
[2025-03-02] MEDS: NEURONTIN 300 MG PO ×2 (08:15→17:47)
[2025-03-02] MEDS: NOVOLOG FLEXPEN 5 UNITS SC ×3 (09:05→16:12)
--- NOTE | 2025-03-02 10:06 | W.PN.HOSP.TC ---
Today's Communication/Plan
-
monitor on IV antibiotics with persistent elevated WBC
Assessment / Plan
Assessment / Plan
Mr. López Manuel is a 64 yo man, [facility] resident with hx CVA with left-sided hemiparesis (2022), memory impairment, neurogenic bladder with chronic benedict, frequent UTI's, HTN, HLD, DM 2, GERD, former alcohol use, tobacco use presents to the ER
with 104 T.
He is admitted for sepsis 2/2 UTI.
Sepsis 2/2 catheter associated UTI
History of recurrent UTI's - states typically goes to [facility] or [place]
- Benedict catheter replaced in ER
- urine culture with mixed growth. Given clinical improvement on IV Ceftriaxone, will continue
-Continue Flomax 0.4 mg at bedtime
- s/p fluids
- WBC remains elevated, will monitor on IV antibiotics one more day
# Left renal carcinoma -patient reports 9 months ago was diagnosed at [facility] but has not sought treatment
- Advised patient to seek evaluation
#CVA with chronic left-sided hemiparesis, chronic memory impairment 2022
#History of seizure with stroke in 2022
- Continue Keppra 500 mg twice daily, aspirin 81 mg daily, Lipitor 40 mg every afternoon
- Uses wheelchair
#Nicotine abuse
Smokes half a pack a day cessation advised
-Refused nicotine patch or gum
#HTN
- BP 131/74
- Current medication
#HLD
- Continue Lipitor 40 mg every afternoon
#DM2
- Accu-Cheks with SSI, check HgbA1c
- Continue insulin glargine 8 units SQ at bedtime, Humalog 5 units with meals
Hold metformin 500 mg twice daily
-ok to increase to 2200 chasity
# GERD
upper GI bleed
History of esophageal perforation 2 years ago patient reports
- Continue Protonix 40 mg daily, calcium carbonate 500 mg daily
#Chronic left foot neuropathy
-Continue meloxicam 15 mg at bedtime
-Continue gabapentin 300 mg p.o. twice daily
Other PMH:
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
Renal calculi
DVT prophylaxis
Subcu Lovenox
Full code
Anticipated Discharge: 24 - 48 hours
Subjective/Interval History
-
Date of Service: March 02, 2025
no new complaints
no pain
eating and drinking well
Objective Data
-
Labs:
Laboratory Results
03/02/25
06:22
WBC 12.3 H
Hgb 11.0 L
Hct 33.8 L
Plt Count 480 H
Vital Signs:
Vital Signs
Temp Pulse Resp BP Pulse Ox
98.8 F 64 16 138/72 97
03/02/25 07:43 03/02/25 07:43 03/02/25 07:43 03/02/25 07:43 03/02/25 07:43
I&O
03/01/25 03/02/25 03/03/25
06:59 06:59 06:59
Intake Total 1840 / 1840 940 / 940
Output Total 2750 / 2750 1230 / 1230
Balance -910 / -910 -290 / -290
Review of Systems
-
History Source: Patient
All other systems: Reviewed and negative
Physical Exam
-
General: No Apparent Distress
HEENT: PERRLA
Respiratory: Clear to Auscultation; Negative Wheezes
Cardiac: Regular Rhythm and S1/S2
GI: Soft and Nontender
Genito-urinary: Benedict
Musculoskeletal: No Edema
Skin: Warm and Dry; Negative Rash
Neuro: AO x 3 and Other (left facial droop; left hemiparesis )
Psych: Calm
Data Reviewed
-
Diagnostic Radiology: Report Reviewed by me
Labs: Labs Reviewed by me
--- NOTE | 2025-03-02 10:06 | CM ---
Reinforced with pt that SW at [facility] aware of pt's requested to transfer to [facility] after rehab.She will continue process on return to [facility].
Pt has electric wheelchair at [facility].Pt has chronic Gonzalez with left side paralysis post CVA.
Pt on IV antibiotics Pending cultures.
Will need medical nec form for ambulance.
[facility]
[phone]
fax [phone]
PLAN return to [facility]
[2025-03-02 11:08] LABS: Glucose - Point of Care 225 mg/dl (70-99)
[2025-03-02 11:31] VITALS: BP 124/64
[2025-03-02] MEDS: NOVOLOG FLEXPEN-LOW RESISTANCE 2 UNITS SC (11:31)
[2025-03-02 15:47] VITALS: BP 157/83
[2025-03-02 16:11] LABS: Glucose - Point of Care 179 mg/dl (70-99)
[2025-03-02] MEDS: NOVOLOG FLEXPEN-LOW RESISTANCE 1 UNITS SC (16:12)
[2025-03-02] MEDS: LIPITOR 40 MG PO (17:28)
[2025-03-02] MEDS: LOVENOX 40 MG SC (17:28)
[2025-03-02] MEDS: ROCEPHIN 1000 MG IV (17:29)
[2025-03-02] MEDS: STERILE WATER FOR INJECTION 10 ML IV (17:29)
[2025-03-02] MEDS: MOBIC 15 MG PO (20:42)
[2025-03-02] MEDS: FLOMAX 0.4 MG PO (20:42)
[2025-03-02 21:15] LABS: Glucose - Point of Care 95 mg/dl (70-99)
[2025-03-02] MEDS: LANTUS 0.08 UNITS SC (21:29)
[2025-03-02 23:46] VITALS: BP 152/75
[2025-03-03] MEDS: TYLENOL 650 MG PO ×3 (00:18→11:48)
[2025-03-03 07:12] VITALS: BP 135/79
[2025-03-03 07:36] LABS: Glucose - Point of Care 86 mg/dl (70-99)
[2025-03-03] MEDS: NOVOLOG FLEXPEN-LOW RESISTANCE SC (07:39)
[2025-03-03 08:09] LABS: Hematocrit 32.6 % (39.0-52.0); Hemoglobin 10.7 g/dL (13.0-18.0); Mean Corp Hgb Conc. 32.8 g/dL (33.0-37.0); Mean Corpuscular Volume 90.1 fL (80.0-94.0); Nucleated Red Blood Cells % 0 % (-); Platelet Count 469 10^3/uL (130-400); Red Cell Dist. Width 13.4 % (11.5-14.5)
--- NOTE | 2025-03-03 08:12 | W.PN.HOSP.TC ---
Today's Communication/Plan
-
Ok for DC today
Assessment / Plan
Assessment / Plan
Mr. López Manuel is a 64 yo man, [facility] resident with hx CVA with left-sided hemiparesis (2022), memory impairment, neurogenic bladder with chronic benedict, frequent UTI's, HTN, HLD, DM 2, GERD, former alcohol use, tobacco use presents to the ER
with 104 T.
He is admitted for sepsis 2/2 UTI.
Sepsis 2/2 catheter associated UTI
History of recurrent UTI's - states typically goes to [facility] or [place]
- Benedict catheter replaced in ER
- urine culture with mixed growth. Given clinical improvement on IV Ceftriaxone, will continue
-Continue Flomax 0.4 mg at bedtime
- s/p fluids
-leukocytosis now normalized
-DC on Cefdinir to complete a 10 day course (6 additional days)
# Left renal carcinoma -patient reports 9 months ago was diagnosed at [facility] but has not sought treatment
- Advised patient to seek evaluation
#CVA with chronic left-sided hemiparesis, chronic memory impairment 2022
#History of seizure with stroke in 2022
- Continue Keppra 500 mg twice daily, aspirin 81 mg daily, Lipitor 40 mg every afternoon
- Uses wheelchair
#Nicotine abuse
Smokes half a pack a day cessation advised
-Refused nicotine patch or gum
#HTN
- BP 131/74
- Current medication
#HLD
- Continue Lipitor 40 mg every afternoon
#DM2
- Accu-Cheks with SSI, check HgbA1c
- Continue insulin glargine 8 units SQ at bedtime, Humalog 5 units with meals
Hold metformin 500 mg twice daily
-ok to increase to 2200 chasity
# GERD
upper GI bleed
History of esophageal perforation 2 years ago patient reports
- Continue Protonix 40 mg daily, calcium carbonate 500 mg daily
#Chronic left foot neuropathy
-Continue meloxicam 15 mg at bedtime
-Continue gabapentin 300 mg p.o. twice daily
Other PMH:
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
Renal calculi
DVT prophylaxis
Subcu Lovenox
Full code
Anticipated Discharge: Today
Subjective/Interval History
-
Date of Service: March 03, 2025
no new complaints
feeling well
no fever overnight
Objective Data
-
Labs:
Laboratory Results
03/03/25
06:32
WBC 10.6
Hgb 10.7 L
Hct 32.6 L
Plt Count 469 H
Vital Signs:
Vital Signs
Temp Pulse Resp BP Pulse Ox
98 F 56 16 152/75 96
03/02/25 23:46 03/02/25 23:46 03/02/25 23:46 03/02/25 23:46 03/02/25 23:46
I&O
03/02/25 03/03/25 03/04/25
06:59 06:59 06:59
Intake Total 940 / 940 1200 / 1200
Output Total 1230 / 1230 1575 / 1575
Balance -290 / -290 -375 / -375
Review of Systems
-
History Source: Patient
All other systems: Reviewed and negative
Physical Exam
-
General: No Apparent Distress
HEENT: PERRLA
Respiratory: Clear to Auscultation; Negative Wheezes
Cardiac: Regular Rhythm and S1/S2
GI: Soft and Nontender
Genito-urinary: Benedict
Musculoskeletal: No Edema
Skin: Warm and Dry; Negative Rash
Neuro: AO x 3 and Other (left facial droop; left hemiparesis )
Psych: Calm
Data Reviewed
-
Diagnostic Radiology: Report Reviewed by me
Labs: Labs Reviewed by me
[2025-03-03] MEDS: NEURONTIN 300 MG PO (08:24)
[2025-03-03] MEDS: OSCAL CAL 500 500 MG PO (08:24)
[2025-03-03] MEDS: NOVOLOG FLEXPEN 5 UNITS SC ×2 (08:24→11:47)
[2025-03-03] MEDS: PROTONIX 40 MG PO (08:24)
[2025-03-03] MEDS: LIORESAL 10 MG PO (08:25)
[2025-03-03] MEDS: LOW STRENGTH ASPIRIN 81 MG PO (08:25)
[2025-03-03] MEDS: KEPPRA 500 MG PO (08:25)
--- NOTE | 2025-03-03 08:50 | W.DS.TRANS ---
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
-
Discharge Instructions:
Discharge Diagnosis/Procedures sepsis secondary to urinary tract infection
Diet Diabetic, Carb Controlled
Activity As tolerated
Driving Restrictions No driving
Bathing Restrictions None
Instructions:
Stand-Alone Forms:
Changes to Home Medications: Yes
Discharge Medications:
DC Medications w/original date entered in [employer]
acetaminophen 325 mg tablet (Tylenol) 650 mg PO Q6HPRN PRN mild pain 02/27/25
aspirin 81 mg chewable tablet 81 mg PO DAILY Blood Clot Prevention/Tx 02/27/25
atorvastatin 40 mg tablet (Lipitor) 40 mg PO QPM High Cholesterol 02/27/25
baclofen 10 mg tablet 10 mg PO BID Muscle Spasms 02/27/25
bisacodyl 10 mg rectal suppository (Dulcolax (bisacodyl)) 10 mg MI DAILYPRN PRN if no bm aftr mom 02/27/25
calcium carbonate 500 mg PO DAILY Supplement 02/27/25
cetylpyridinium chloride 1 melody mucous membrane Q2HPRN PRN cough 02/27/25
gabapentin 300 mg capsule 300 mg PO BID Neurological Condition 02/27/25
insulin glargine 100 unit/mL subcutaneous solution 8 unit SC HS Diabetes 02/27/25
insulin lispro 200 unit/mL (3 mL) subcutaneous pen (Humalog KwikPen U-200 Insulin) 5 sliding scale dose SC AC Diabetes 02/27/25
levetiracetam 500 mg tablet (Keppra) 500 mg PO BID Neurological Condition 02/27/25
loperamide 2 mg capsule 2 mg PO [id number] PRN diarrhea 02/27/25
loratadine 10 mg tablet (Claritin) 10 mg PO DAILYPRN PRN allergies 02/27/25
magnesium hydroxide 400 mg/5 mL oral suspension (Milk of Magnesia) 2,400 mg PO DAILYPRN PRN if no bm by 3rd day 02/27/25
meloxicam 15 mg tablet 15 mg PO HS Anti-Inflammatory 02/27/25
metformin 500 mg tablet 500 mg PO BID Diabetes 02/27/25
pantoprazole 40 mg tablet,delayed release (Protonix) 40 mg PO DAILY Gastrointestinal Issue 02/27/25
sodium phosphates 19 gram-7 gram/118 mL enema (Fleet Enema) 118 ml MI DAILYPRN PRN if no bm aftr dulolcax 02/27/25
tamsulosin 0.4 mg capsule (Flomax) 0.4 mg PO HS Urinary Issue 02/27/25
cefdinir 300 mg capsule 300 mg PO Q12 #12 caps 03/03/25
Home Medication Changes
addition of 6 more days of Cefdinir
Pending Results: No
--- NOTE | 2025-03-03 09:09 | CM ---
Addendum entered by Nena Dunne 03/03/25 12:43:
Met with patient at bedside; IMM benefit explained; form signed @ 1240
Addendum entered by Nena Dunne 03/03/25 09:46:
ambulance hop picker 1400; facility notified
Original Note:
Plan: medically cleared for return to [facility] via ambulance today
Report # [phone] x [phone]
[2025-03-03 11:25] LABS: Glucose - Point of Care 189 mg/dl (70-99)
[2025-03-03] MEDS: NOVOLOG FLEXPEN-LOW RESISTANCE 1 UNITS SC (11:47)
--- NOTE | 2025-03-03 12:56 | W.DCSUMMARY ---
Discharge Summary
Discharge Data
Date of Admission: 02/27/25
Date of Discharge: 03/03/25
-
Pending Results: No
Hospital Course
Discharging Physician : Dr. Gunjan Lora
Disposition : NH
Primary care physician : Dr. Kelly Donovan
Principal Discharge diagnosis : Sepsis 2/2 Urinary tract infection in setting of chronic benedict catheter
Hospital Course :
Mr. López Manuel is a 64 yo man, [facility] resident with hx CVA with left-sided hemiparesis (2022), memory impairment, neurogenic bladder with chronic benedict, frequent UTI's, HTN, HLD, DM 2, GERD, former alcohol use, tobacco use presents to the ER
with fever of 104.
In the ED he had a temp of 104, blood pressure was 130/74 with a pulse rate of 117. He had a white count of 7.5, hemoglobin 11.4 platelet 526. His electrolytes show a sodium of 132 otherwise normal. BUN and creatinine were 13 and 0.9
respectively. UA markedly positive with WBCs leukocyte esterase but only few bacteria. Influenza A is negative. Chest x-ray shows no acute infiltrates.
He was admitted for treatment of sepsis 2/2 UTI. His benedict catheter was exchanged in the ER. His fever curve and leukocytosis improved on IV Ceftriaxone. Urine culture returned with mixed radha. Given improvement on IV Ceftriaxone, he is
maintained on antibiotics, transitioned to oral Cefdinir to complete a 10 day course.
Time spent on discharge was 35 minutes.
Important imaging findings :
CXR 02/27/25
IMPRESSION:
Low lung volumes.
No focal parenchymal opacification to suggest pneumonia.
Procedure findings :
Discharge Plan
-
Patient Disposition: [facility]SNF
Discharge Diagnosis/Procedures: sepsis secondary to urinary tract infection
Diet: Diabetic, Carb Controlled
Activity: As tolerated
Driving Restrictions: No driving
Bathing Restrictions: None
Referrals:
Marcello Macias DO [Family Provider, Internal Medicine] - in less than 1 week
Additional Discharge Medication Instructions: You have 6 more days of antibiotics to complete a 10 day course.
Prescriptions:
New
cefdinir 300 mg Capsule
300 mg PO Q12 Qty: 12 0RF
Continued
atorvastatin [Lipitor] 40 mg Tablet
40 mg PO QPM
metformin 500 mg Tablet
500 mg PO BID
acetaminophen [Tylenol] 325 mg Tablet
650 mg PO Q6HPRN PRN (Reason: mild pain)
insulin glargine 100 unit/mL Solution
8 unit SC HS
loperamide 2 mg Capsule
2 mg PO [id number] PRN (Reason: diarrhea)
levetiracetam [Keppra] 500 mg Tablet
500 mg PO BID
meloxicam 15 mg Tablet
15 mg PO HS
magnesium hydroxide [Milk of Magnesia] 400 mg/5 mL Suspension
2,400 mg PO DAILYPRN PRN (Reason: if no bm by 3rd day)
calcium carbonate 500 mg calcium (1,250 mg) Tablet
500 mg PO DAILY
tamsulosin [Flomax] 0.4 mg Capsule
0.4 mg PO HS
baclofen 10 mg Tablet
10 mg PO BID
bisacodyl [Dulcolax (bisacodyl)] 10 mg Suppository
10 mg IN DAILYPRN PRN (Reason: if no bm aftr mom)
pantoprazole [Protonix] 40 mg Tablet,Delayed Release (Dr/Ec)
40 mg PO DAILY
Fleet Enema 19-7 gram/118 mL Enema
118 ml IN DAILYPRN PRN (Reason: if no bm aftr dulolcax)
gabapentin 300 mg Capsule
300 mg PO BID
aspirin 81 mg Tablet,Chewable
81 mg PO DAILY
loratadine [Claritin] 10 mg Tablet
10 mg PO DAILYPRN PRN (Reason: allergies)
cetylpyridinium chloride Lozenge
1 melody MUCOUS MEMBRANE Q2HPRN PRN (Reason: cough)
Humalog KwikPen Insulin 200 unit/mL (3 mL) Insulin Pen
5 sliding scale dose SC AC
Discontinued
acetaminophen [Tylenol] 325 mg Tablet
650 mg PO Q6HPRN PRN (Reason: mild pain)
Discharge Orders:
Discharge Patient (As Directed); Ordered 03/03/25
Ordered By: Gunjan Lora
Discharge Date and Time
Print Language: MACEDONIAN
[2025-03-03 13:07] VITALS: BP 116/63
== END 2025-03-03 13:59 | DRG 698 ==
LOC: 4 EAST ACU 19:46
PROVIDERS: Clinical Nurse Specialist Family Health; Nurse Practitioner; ADMITTING PHYSICIAN Internal Medicine; ATTENDING PHYSICIAN Student in an Organized Health Care Education/Training Program; EMERGENCY PHYSICIAN Emergency Medicine; FAMILY PHYSICIAN Internal Medicine; PRIMARYCARE PHYSICIAN Family Medicine
DX: T83.518A Infection and inflammatory reaction due to other urinary catheter, initial encounter (principal); A41.9 Sepsis, unspecified organism; N39.0 Urinary tract infection, site not specified; I69.354 Hemiplegia and hemiparesis following cerebral infarction affecting left non-dominant side; C64.2 Malignant neoplasm of left kidney, except renal pelvis; I10 Essential (primary) hypertension; K21.9 Gastro-esophageal reflux disease without esophagitis; N31.9 Neuromuscular dysfunction of bladder, unspecified; Z87.440 Personal history of urinary (tract) infections; E78.5 Hyperlipidemia, unspecified; E11.41 Type 2 diabetes mellitus with diabetic mononeuropathy; Z79.84 Long term (current) use of oral hypoglycemic drugs; Z79.4 Long term (current) use of insulin; F10.21 Alcohol dependence, in remission; F17.210 Nicotine dependence, cigarettes, uncomplicated; Y84.6 Urinary catheterization as the cause of abnormal reaction of the patient, or of later complication, without mention of misadventure at the time of the procedure; Z87.442 Personal history of urinary calculi; Z59.6 Low income; Z79.82 Long term (current) use of aspirin; Z82.3 Family history of stroke; Z80.3 Family history of malignant neoplasm of breast; Z80.8 Family history of malignant neoplasm of other organs or systems
CPT/HCPCS: 71045; 80048; 80053; 81003; 81015; 82962; 83036; 83605; 85025; 85610; 87040; 87070; 87086; 87502; 93005; 96361; 96374; 97163; 99285; 99406